=== PATIENT | male | born 1985 | race African-American/Black ===

== ENCOUNTER 2016-11-18 00:37 | Emergency (ER) | payer OTHER ==
--- NOTE | 2016-11-20 08:46 | ER ---
ADMIT: 11/18/2016 RM/LOC: ER [facility] MR#: [id number] [address] [id number] LINH FISHERSHANT ELHAM [address] [place] [address] Emergency Room Report SEX: M AGE: 31 : 1985 DATE: 11/18/2016 SUBJECTIVE: The patient is a 31-year-old male, who came here with a chief complaint of right 5th finger dorsum of the proximal phalanx laceration which happened today at work. The patient states that the hook hit the finger while he was searching for something and the hook cut the finger. The patient denies any numbness or tingling. The patient denies any trauma to other parts of the body and states vaccination is up to date. PHYSICAL EXAMINATION: HEAD AND NECK: Negative and noncontributory. CHEST: Negative and noncontributory. ABDOMEN: Negative and noncontributory. EXTREMITIES: Except for the 1 cm laceration on the dorsum of the right proximal phalanx which is linear, there were no other signs of trauma. There is no tendon involvement and neurovascularly, the patient is intact. After anesthetizing with lidocaine 1% per procedure note, the wound was irrigated and observed and there was no tendon injury. The wound was repaired in one layer with four sutures of Ethilon 3.0. The patient is stable to be discharged to home. Return precautions, wound care handout, and advised to follow up with primary doctor in 7 to 14 days for removal of suture. The patient agreed with the plan and was discharged to home. Paul Townsend MD/ adelaida JOB #: [id number] CC: Paul Townsend MD, Attending Physician Vania Reeder MD, Family Physician
== END 2016-11-18 01:40 | disposition home or self-care (01) ==
LOC: ER 00:37
PROC: 0HQFXZZ Repair Right Hand Skin, External Approach (ICD-10-PCS; principal; 2016-11-18)
DX: S61.216A Laceration without foreign body of right little finger without damage to nail, initial encounter (principal); W27.8XXA Contact with other nonpowered hand tool, initial encounter; Y92.69 Other specified industrial and construction area as the place of occurrence of the external cause; Y99.0 Civilian activity done for income or pay